=== PATIENT | male | born 1975 ===

== ENCOUNTER 2023-03-11 10:58 | Day surgery (SDC) | payer OTHER | END 2023-03-11 16:20 | disposition home or self-care (01) | LOC: AMB-ENDOS 10:58 | PROVIDERS: ATTEND Colon & Rectal Surgery | DX: K62.89 Other specified diseases of anus and rectum (principal); K64.8 Other hemorrhoids; K57.30 Diverticulosis of large intestine without perforation or abscess without bleeding; K62.5 Hemorrhage of anus and rectum; R19.4 Change in bowel habit; Z20.822 Contact with and (suspected) exposure to COVID-19; K62.1 Rectal polyp ==